=== PATIENT | female | born 1995 | race Two or more races ===

== ENCOUNTER 2017-08-10 21:09 | Inpatient (IN) | END 2017-08-13 19:01 | disposition home or self-care (01) | DRG 775 ==

== ENCOUNTER 2019-02-16 00:08 | Emergency (ER) | payer BC, MEDICAID, OTHER ==
[~2019-02-16] VITALS: Ht 167.6 cm; Wt 71.1 kg
[~2019-02-16 00:08] MED LIST: PREN-93 PO
[2019-02-16 00:12] VITALS: Ht 167.6 cm; Wt 71.1 kg
[2019-02-16] MEDS ORDERED: KETOROLAC 30 MG INJ IM STA (01:29)
[2019-02-16] MEDS ORDERED: LIDOCAINE/MYLANTA 40 ML BTL PO ONE (01:30)
[2019-02-16] MEDS ORDERED: RANITIDINE 150 MG TAB PO ONE (01:30)
[2019-02-16] MEDS ORDERED: NAPR-985 PO (02:10)
[2019-02-16] MEDS ORDERED: RANI150T35 PO (02:10)
[2019-02-16 02:24] VITALS: BP 111/73; PULSE 78; RESP 18
--- NOTE | 2019-02-16 05:33 | ERD ---
ER Documentation Chief Complaint Chief Complaint headache/dizziness x 4 days HPI Patient is a 23-year-old female presents to the emergency department complaining of intermittent headache for the past 2 days. She does have history of headaches since she was a child. This headache feels similar to all other headaches she has had before. She took Motrin at home with some relief. Her current pain level is rated 4/10 in severity. She denies any photophobia, phonophobia, fevers, chills, neck pain, or other symptoms at this time. She also reports mild burning sensation of the midepigastric region which is worse after eating and with laying down. She denies any fevers, chills, or other symptoms currently. ROS All systems reviewed and are negative except as per history of present illness. Medications Home Meds Active Scripts Naproxen* (Naprosyn*) 500 Mg Tablet, 500 MG PO BID PRN for PAIN AND/OR INFLAMMATION, #30 TAB Prov:DESHAUN FLORES PA-C 02/16/19 Ranitidine Hcl* (Zantac*) 150 Mg Tablet, 150 MG PO BID PRN for EPIGASTRIC PAIN, #30 TAB Prov:DESHAUN FLORES PA-C 02/16/19 Reported Medications Vit No.124/Iron/FA ( Vitamin Tablet) 1 Each Tablet, 1 EACH PO, TAB 08/10/17 Allergies Allergies: Coded Allergies: No Known Allergy (Unverified , 08/10/17) PMhx/Soc Medical and Surgical Hx: pt denies Medical Hx, pt denies Surgical Hx Hx Alcohol Use: No Hx Substance Use: No Hx Tobacco Use: No FmHx Family History: No diabetes Physical Exam Vitals Vital Signs Date Temp Pulse Resp B/P (MAP) Pulse Ox O2 O2 Flow FiO2 Time Delivery Rate 02/16/19 98.6 78 18 111/73 98 02:24 (86) 02/16/19 98.2 73 18 111/76 100 00:12 (88) Physical Exam Const: No acute distress Head: Atraumatic Eyes: Normal Conjunctiva ENT: Normal External Ears, Nose and Mouth. Neck: Full range of motion. No meningismus. Resp: Clear to auscultation bilaterally Cardio: Regular rate and rhythm, no murmurs Abd: Soft, non tender, non distended. Normal bowel sounds. No rebound tenderness or guarding. No McBurney's point tenderness. Skin: No petechiae or rashes Back: No midline or flank tenderness Ext: No cyanosis, or edema Neur: Awake and alert. No neurological deficits. Psych: Normal Mood and Affect Results 24 hrs Laboratory Tests Test 02/16/19 01:55 POC Beta HCG, Qualitative NEGATIVE Current Medications Medications Dose Sig/Yesenia Start Time Status Last (Trade) Ordered Route PRN Stop Time Admin Dose Reason Admin Ketorolac 30 mg ONCE STAT 02/16/19 DC 02/16/19 Tromethamine IM 01:29 01:58 (Toradol) 02/16/19 01:30 Ranitidine 150 mg ONCE ONCE 02/16/19 DC 02/16/19 HCl PO 01:30 02:03 (Zantac) 02/16/19 01:31 40 ml ONCE ONCE 02/16/19 DC 02/16/19 Miscellaneous PO 01:30 01:58 Medication 02/16/19 01:31 (Gi Cocktail (2)) Procedures/MDM 23-year-old female presents to the emergency department complaining of mild midepigastric pain and headache for the past 2 days. Patient has history of headaches in the past and this 1 feels similar to other episodes. She has no neurological deficits. I did not feel that further work-up was indicated at this time due to patient's history and physical exam. Patient was significantly improved after treatment with GI cocktail, IM Toradol, and Zantac. Patient symptoms are likely secondary to GERD and tension headache. Much lower suspicion for CVA, TIA, intracranial hemorrhage, acute surgical abdomen, or other emergencies. Patient will need 24 to 48-hour follow-up with her primary care physician and she should return here immediately for any new, worsening, or concerning symptoms. I shared my medical decision making with the patient and she understands and agrees with the plan. Departure Diagnosis: Primary Impression: Epigastric pain Additional Impression: Headache Condition: Fair Patient Instructions: Self-Care for Headaches, Gerd (Adult) Referrals: [facility] Usted se vale hecho un examen mdico de control que le indica que no est en magdaleno condicin que requiera tratamiento urgente en el Departamento de Emergencia. Un estudio ms profundo y el tratamiento de perez condicin pueden esperar sin ningn riesgo hasta que usted sea atendida/o en el consultorio de perez mdico o magdaleno clnica. Es responsabilidad suya arreglar magdaleno shar para el seguimiento del janice. MANEJO DE CONDICIONES NO URGENTES EN EL FUTURO 1) Si usted tiene un mdico de atencin primaria: Usted debera llamar a perez mdico de atencin primaria antes de venir al de partamento de emergencia. Despus de las horas de consultorio, perez doctor o perez asociado/a est disponible por telfono. El mdico o enfermero de jennifer en el servicio telefnico puede asesorarle por kareem medio para atender el problema, o janice contrario se puede programar magdaleno shar. 2) Si usted no tiene un mdico de atencin primaria: Llame al mdico o clnica de referencia que aparece abajo andrew las horas de consultorio para hacer magdaleno shar para que le vean. CLINICAS: [place] [id number] [phone] [facility] [phone] [facility]. [facility] [phone] [facility]. [place] [phone] [facility]. [place] [phone] [facility]. [phone] Additional Instructions: Llame al doctor MAANA y maylin magdaleno SHAR PARA DENTRO DE 1-2 VALDEZ.Dgale a la secretaria que nosotros le instruimos hacer esta shar.Avise o llame si perez condicin se empeora antes de la shar. Regresa aqui si peor o no mejor. DESHAUN FLORES PA-C Feb 16, 2019 05:33
== END 2019-02-16 02:25 | disposition home or self-care (01) ==
LOC: FTE 00:08
DX: R10.13 Epigastric pain (principal)
CPT/HCPCS: 81025; 96372; 99284; J1885; Z7610